=== PATIENT | female | born 1950 | race Caucasian/White ===

== ENCOUNTER 2021-12-05 11:17 | Emergency (ER) | payer MEDICARE ==
[2021-12-05] MEDS ORDERED: Alteplase PER PHARMACY Stroke 1 EACH MISC MISCELLANE PRN (11:22)
[2021-12-05] MEDS ORDERED: SODIUM CHLORIDE 0.9% 500 ML 500 ML IV STA (11:22)
[2021-12-05 11:24] VITALS: RESP 18
[2021-12-05] MEDS ORDERED: ALTEPLASE BOLUS FOR STROKE 5 MG in EMPTY SYRINGE 1 SYR IV STA (11:25)
[2021-12-05] MEDS ORDERED: ALTEPLASE IV STA (11:25)
[2021-12-05 11:27] LABS: Glucose,Whole Blood 285 mg/dL (70-110)
[2021-12-05] MEDS ORDERED: hydrALAZINE HCL 20 MG/ML 1 ML VIAL IVP STA (11:33)
--- NOTE | 2021-12-05 11:33 | ED ---
General Adult HPI - General Chief complaint: Neuro Symptoms/Deficit Stated complaint: neuro issue Time Seen by Provider: 12/05/21 11:19 Source: family, RN notes reviewed, old records reviewed Mode of arrival: ambulatory - History of Present Illness Initial comments: This is a 71-year-old female presents emergency Department with left-sided paralysis and facial droop for the last 30 minutes. states she was fine prior to this started suddenly the car. Patient has no movement of the arm or leg and she does have some drooping of the face on the left side. Patient den ies any areas of pain. According to the she has a hypertensive history and she has hydrocephalus and has a AUTO CLAIM REPRESENTATIVE shunt in place which was done this past April. states the patient did have a fall last evening but he does not know if she hit her head she did not mention that she had hit her head. - Related Data Allergies Allergy/AdvReac Type Severity Reaction Status Date / Time No Known Allergies Allergy Verified 12/05/21 11:40 Review of Systems ROS Statement: Those systems with pertinent positive or pertinent negative responses have been documented in the HPI. ROS Other: All systems not noted in ROS Statement are negative. General Exam - General Exam Comments Initial Comments: GENERAL: Patient is well-developed and well-nourished. Patient is nontoxic and well- hydrated and is in mild distress. ENT: Neck is soft and supple. No significant lymphadenopathy is noted. Oropharynx is clear. Moist mucous membranes. Neck has full range of motion without eliciting any pain. EYES: The sclera were anicteric and conjunctiva were pink and moist. Extraocular movements were intact and pupils were equal round and reactive to light. Eyelids were unremarkable. PULMONARY: Unlabored respirations. Good breath sounds bilaterally. No audible rales rhonchi or wheezing was noted. CARDIOVASCULAR: Patient is tachycardic at 150 beats a minute. ABDOMEN: Soft and nontender with normal bowel sounds. No palpable organomegaly was noted. There is no palpable pulsatile mass. SKIN: Skin is clear with no lesions or rashes and otherwise unremarkable. NEUROLOGIC: Patient is alert but difficult to assess orientation since she doesn't always answer all questions. Patient has facial droop on the left side that seems to be slight and intermittent at times. Patient has complete paralysis left arm and left leg. Patient has no sensation to the left arm or leg. Patient did not answer any questions about the images on the diagrams. Patient has an NIH of 19 MUSCULOSKELETAL: Normal extremities with adequate strength and full range of motion. LYMPHATICS: No significant lymphadenopathy is noted PSYCHIATRIC: Unable to assess at this time Course Vital Signs 12/05/21 12/05/21 12/05/21 11:21 11:22 11:45 Pulse Rate 144 H 144 H 142 H Respiratory 18 18 18 Rate Blood Pressure 172/113 153/110 144/90 O2 Sat by Pulse 96 96 95 Oximetry 12/05/21 12/05/21 12/05/21 12:00 12:30 13:00 Pulse Rate 142 H 144 H 147 H Respiratory 18 18 18 Rate Blood Pressure 132/90 127/89 138/81 O2 Sat by Pulse 89 L 88 L 90 L Oximetry Medical Decision Making - Medical Decision Making Patient had initial NIH 19 but got considerably better has an NIH currently of 6. Patient's blood pressure at last measurement was 159/113. I was awaiting to speak with one of the neuro interventional is because complicated nature of the case. The neurointerventionalist has responded. Patient's had a seizure shortly after she came back CAT scan she was given one of Ativan and I went back into reevaluate her after that and her neurologic deficit is completely resolved and she knew the date when where she was was able to answer all questions and move all extremities. CT and CTA showed no acute abnormality. Eventually the neurointerventionalist called back and agreed that the patient should not receive any alteplase since the patient's blood pressure was still elevated and the patient's symptoms were getting considerably better. Patient's EKG was done and it showed a atrial flutter at 140 bpm PA interval is 129 QRS is 86 QT interval 325 QTC is 410. At this point time patient was placed on Cardizem and started on heparin drip. Chest x-ray showed possible pulmonary edema or pneumonia. I started the patient on 2 g of Rocephin just to cover a possible pneumonia. I gave the patient 60 of Lasix and placed the patient on BiPAP I spoke with the ER doc down at [facility] and he accepted transfer of the patient. After this point time a family member came in and spoke with me and told me that they were concerned about a drinking history and maybe even drug abuse history. At this point time I did add a test for alcohol and drug use - Lab Data Result diagrams: 12/05/21 11:32 12/05/21 11:32 Lab Results 12/05/21 12/05/21 12/05/21 Range/Units 11:25 11:32 11:32 WBC 17.5 H (3.8-10.6) k/uL RBC 4.26 (3.80-5.40) m/uL Hgb 14.3 (11.4-16.0) gm/dL Hct 44.4 (34.0-46.0) % MCV 104.4 H (80.0-100.0) fL MCH 33.5 (25.0-35.0) pg MCHC 32.1 (31.0-37.0) g/dL RDW 13.4 (11.5-15.5) % Plt Count 550 H (150-450) k/uL MPV 7.8 Neutrophils % (Manual) 37 % Lymphocytes % (Manual) 58 % Monocytes % (Manual) 5 % Neutrophils # (Manual) 6.48 (1.3-7.7) k/uL Lymphocytes # (Manual) 10.15 H (1.0-4.8) k/uL Monocytes # (Manual) 0.88 (0-1.0) k/uL Nucleated RBCs 0 (0-0) /100 WBC Manual Slide Review Performed Hypochromasia Slight Macrocytosis Slight PT 11.2 (9.0-12.0) sec INR 1.0 (<1.2) APTT 22.2 (22.0-30.0) sec D-Dimer (<0.60) mg/L FEU Sodium (137-145) mmol/L Potassium (3.5-5.1) mmol/L Chloride (98-107) mmol/L Carbon Dioxide (22-30) mmol/L Anion Gap mmol/L BUN (7-17) mg/dL Creatinine (0.52-1.04) mg/dL Est GFR (CKD-EPI)AfAm (>60 ml/min/1.73 sqM) Est GFR (CKD-EPI)NonAf (>60 ml/min/1.73 sqM) Glucose (74-99) mg/dL POC Glucose (mg/dL) 285 H (70-110) mg/dL POC Glu Fax Machine Operator ID Allan, Franchesca Calcium (8.4-10.2) mg/dL Total Bilirubin (0.2-1.3) mg/dL AST (14-36) U/L ALT (4-34) U/L Alkaline Phosphatase (38-126) U/L Troponin I (0.000-0.034) ng/mL NT-Pro-B Natriuret Pep pg/mL Total Protein (6.3-8.2) g/dL Albumin (3.5-5.0) g/dL 12/05/21 12/05/21 12/05/21 Range/Units 11:32 11:32 11:32 WBC (3.8-10.6) k/uL RBC (3.80-5.40) m/uL Hgb (11.4-16.0) gm/dL Hct (34.0-46.0) % MCV (80.0-100.0) fL MCH (25.0-35.0) pg MCHC (31.0-37.0) g/dL RDW (11.5-15.5) % Plt Count (150-450) k/uL MPV Neutrophils % (Manual) % Lymphocytes % (Manual) % Monocytes % (Manual) % Neutrophils # (Manual) (1.3-7.7) k/uL Lymphocytes # (Manual) (1.0-4.8) k/uL Monocytes # (Manual) (0-1.0) k/uL Nucleated RBCs (0-0) /100 WBC Manual Slide Review Hypochromasia Macrocytosis PT (9.0-12.0) sec INR (<1.2) APTT (22.0-30.0) sec D-Dimer (<0.60) mg/L FEU Sodium 142 (137-145) mmol/L Potassium 3.9 (3.5-5.1) mmol/L Chloride 101 (98-107) mmol/L Carbon Dioxide 13 L (22-30) mmol/L Anion Gap 28 mmol/L BUN 7 (7-17) mg/dL Creatinine 0.80 (0.52-1.04) mg/dL Est GFR (CKD-EPI)AfAm 87 (>60 ml/min/1.73 sqM) Est GFR (CKD-EPI)NonAf 75 (>60 ml/min/1.73 sqM) Glucose 316 H (74-99) mg/dL POC Glucose (mg/dL) (70-110) mg/dL POC Glu Fax Machine Operator ID Calcium 9.7 (8.4-10.2) mg/dL Total Bilirubin 1.0 (0.2-1.3) mg/dL AST 101 H (14-36) U/L ALT 45 H (4-34) U/L Alkaline Phosphatase 91 (38-126) U/L Troponin I <0.012 (0.000-0.034) ng/mL NT-Pro-B Natriuret Pep 158 pg/mL Total Protein 8.8 H (6.3-8.2) g/dL Albumin 5.1 H (3.5-5.0) g/dL 12/05/21 Range/Units 11:32 WBC (3.8-10.6) k/uL RBC (3.80-5.40) m/uL Hgb (11.4-16.0) gm/dL Hct (34.0-46.0) % MCV (80.0-100.0) fL MCH (25.0-35.0) pg MCHC (31.0-37.0) g/dL RDW (11.5-15.5) % Plt Count (150-450) k/uL MPV Neutrophils % (Manual) % Lymphocytes % (Manual) % Monocytes % (Manual) % Neutrophils # (Manual) (1.3-7.7) k/uL Lymphocytes # (Manual) (1.0-4.8) k/uL Monocytes # (Manual) (0-1.0) k/uL Nucleated RBCs (0-0) /100 WBC Manual Slide Review Hypochromasia Macrocytosis PT (9.0-12.0) sec INR (<1.2) APTT (22.0-30.0) sec D-Dimer 1.53 H (<0.60) mg/L FEU Sodium (137-145) mmol/L Potassium (3.5-5.1) mmol/L Chloride (98-107) mmol/L Carbon Dioxide (22-30) mmol/L Anion Gap mmol/L BUN (7-17) mg/dL Creatinine (0.52-1.04) mg/dL Est GFR (CKD-EPI)AfAm (>60 ml/min/1.73 sqM) Est GFR (CKD-EPI)NonAf (>60 ml/min/1.73 sqM) Glucose (74-99) mg/dL POC Glucose (mg/dL) (70-110) mg/dL POC Glu Fax Machine Operator ID Calcium (8.4-10.2) mg/dL Total Bilirubin (0.2-1.3) mg/dL AST (14-36) U/L ALT (4-34) U/L Alkaline Phosphatase (38-126) U/L Troponin I (0.000-0.034) ng/mL NT-Pro-B Natriuret Pep pg/mL Total Protein (6.3-8.2) g/dL Albumin (3.5-5.0) g/dL Critical Care Time Critical Care Time: Yes Total Critical Care Time: 55 Disposition Clinical Impression: Seizure, Niko's paralysis, Atrial flutter with rapid ventricular response, Pulmonary edema Disposition: OTHER INSTITUTION NOT DEFINED Referrals: None,Stated [Primary Care Provider] - 1-2 days Time of Disposition: 14:32 - Out of Hospital Transfer - Req. Specs Out of Hospital Transfer - Requested Specifics: Other Emergency Center ([facility])
[2021-12-05] MEDS ORDERED: ONDANSETRON 4 MG/2 ML VIAL IVP STA (11:40)
[2021-12-05 11:44] LABS: HCT 44.4 % (34.0-46.0); HGB 14.3 gm/dL (11.4-16.0); Hypochromasia Slight; MCH 33.5 pg (25.0-35.0); MCHC 32.1 g/dL (31.0-37.0); MCV 104.4 fL (80.0-100.0); Macrocytosis Slight; Mean Platelet Volume 7.8; Platelet Count 550 k/uL (150-450); RBC 4.26 m/uL (3.80-5.40); RDW 13.4 % (11.5-15.5); WBC 17.5 k/uL (3.8-10.6)
[2021-12-05 11:56] LABS: Albumin 5.1 g/dL (3.5-5.0); Calcium 9.7 mg/dL (8.4-10.2); Potassium 3.9 mmol/L (3.5-5.1); Total Protein 8.8 g/dL (6.3-8.2)
--- NOTE | 2021-12-05 12:02 | CT ---
EXAMINATION TYPE: CT brain wo con for TPA CT DLP: mGycm, Automated exposure control for dose reduction was used. DATE OF EXAM: 12/05/2021 11:53 AM COMPARISON: None. CLINICAL INDICATION:Female, 71 years old with history of Neuro deficit, acute, stroke suspected, TECHNIQUE: Brain: Multiple axial CT images of the brain were obtained without IV contrast. Coronal sagittal refo rmats reviewed. FINDINGS: Brain: Extra-axial spaces: No abnormal extra-axial fluid collections. Ventricular system: Mildly dilated ventricular system. CHILD WELFARE SPECIALIST shunt catheter identified with posterior ri ght parietal approach with tip directed to the anterior horn of the left lateral ventricle. Visualize d catheter appears intact. Cerebral parenchyma: No acute intraparenchymal hemorrhage or mass effect. Regions of low-attenuation adjacent to the CHILD WELFARE SPECIALIST shunt tract in the parietal lobe related to prior injury/catheter placement. The cohen-white junction is well differentiated. Mild cerebral atrophy. Cerebellum: Unremarkable. Mass effect: No evidence of midline shift. Intracranial vasculature: unremarkable Soft tissues: Normal. Calvarium/osseous structures: No depressed skull fracture. Post surgical changes of the posterior rig ht parietal bone. Paranasal sinuses and mastoid air cells: Clear Visualized orbits: Bilateral aphakia IMPRESSION: 1. No acute evidence of intracranial hemorrhage or midline shift. 2. CHILD WELFARE SPECIALIST shunt catheter identified anterior horn of the left lateral ventricle. Visualized catheter elvis ears intact. Mild dilatation of the ventricular system which may related to cerebral atrophy and/or h ydrocephalus.
[2021-12-05] MEDS ORDERED: LORazepam 2 MG/ML INJ IV STA (12:05)
[2021-12-05] MEDS ORDERED: DILTIAZEM DRIP BOLUS FROM BAG 1 MG SOLN IV ONE (12:08)
[2021-12-05 12:11] LABS: Partial Thromboplastin Time 22.2 sec (22.0-30.0); Prothrombin Time 11.2 sec (9.0-12.0)
[2021-12-05 12:15] LABS: Lymphocytes # (M) 10.15 k/uL (1.0-4.8); Monocytes # (M) 0.88 k/uL (0-1.0); Neutrophils # (M) 6.48 k/uL (1.3-7.7); Neutrophils % (M) 37 %; Nucleated Red Blood Cells 0 /100 WBC (0-0); Total Cells Counted 100
[2021-12-05] MEDS ORDERED: DILTIAZEM 125 MG in SODIUM CHLORIDE 0.9% 100 ML IV SCH (12:15)
[2021-12-05] MEDS ORDERED: SODIUM CHLORIDE 0.9% 50 ML MINI-BAG IV ONE (12:26)
--- NOTE | 2021-12-05 12:29 | CT ---
EXAMINATION TYPE: CT angio head neck CT DLP: 410.7 mGycm, Automated exposure control for dose reduction was used. DATE OF EXAM: 12/05/2021 12:15 PM COMPARISON: CT head of the same date. CLINICAL INDICATION:Female, 71 years old with history of Neuro deficit, acute, stroke suspected; PHH, Neuro deficit, acute, stroke suspected. TECHNIQUE: Axially acquired helical CT angiogram of the head and neck was obtained with contrast util izing 65 cc of Isovue-370 administered intravenously. Axial images are supplemented with 3D reconstru ctions which were post-processed at an independent workstation. NASCET criteria used. FINDINGS: CTA HEAD: The visualized portions of the internal carotid arteries, middle cerebral arteries, anterior cerebral arteries, and posterior cerebral arteries are patent. The basilar and vertebral arteries are patent. CTA NECK: Right Carotid System: The common carotid artery and external carotid artery are patent. Medial deviation of the internal ca rotid artery. The carotid bifurcation demonstrates no evidence of hemodynamically significant stenosi s. The remaining portions of the internal carotid artery demonstrate normal size without significant narrowing. Left Carotid System: The common carotid artery and external carotid artery are patent. Medial deviation of the internal ca rotid artery. The carotid bifurcation demonstrates no evidence of hemodynamically significant stenosi s. The remaining portions of the internal carotid artery demonstrate normal size without significant narrowing. Vertebral arteries are patent without evidence hemodynamically significant stenosis. There is a three-vessel aortic arch. The origins of the great vessels are patent. No evidence of hemo dynamically significant stenosis. Biapical pleural-parenchymal scarring. Persistent visualization of DIALYSIS TECH shunt catheter along the right posterior neck extending into the anterior chest wall. Catheter appears intact. DIALYSIS TECH shunt catheter ter minates within the left anterior horn of the left lateral ventricle. IMPRESSION: 1. No evidence of dissection of the cervical internal carotid arteries or vertebral arteries or any e vidence of significant stenosis at the carotid bifurcations. 2. No evidence of high-grade stenosis or intracranial aneurysm.
[2021-12-05] MEDS ORDERED: FUROSEMIDE 10 MG/ML 10 ML VIAL IV STA (13:02)
--- NOTE | 2021-12-05 13:05 | XR ---
EXAMINATION TYPE: XR chest 1V portable DATE OF EXAM: 12/05/2021 12:51 PM COMPARISON: None TECHNIQUE: XR chest 1V portable Frontal view of the chest. CLINICAL INDICATION:Female, 71 years old with history of Short of breath; FINDINGS: Lungs/Pleura: No pleural effusion or pneumothorax. Bibasilar patchy airspace disease. Pulmonary vascularity: Unremarkable. Heart/mediastinum: Cardiomediastinal silhouette is unremarkable. Musculoskeletal: No acute osseous pathology. Other: PLAYERS ASSISTANT shunt catheter identified along the right chest wall. The distal aspect of the catheter is not well-visualized. IMPRESSION: Bibasilar patchy airspace disease concerning for pneumonia.
[2021-12-05] MEDS ORDERED: HEPARIN SODIUM 1,000 UN/ML (10ML VL) IV ONE (14:20)
[2021-12-05] MEDS ORDERED: HEPARIN SOD,PORK IN 0.45% NACL 25,000 UNIT in 0.45% NACL 1 250ML.BAG IV SCH (14:30)
[2021-12-05 14:55] LABS: Cocaine Screen,Urine Not Detected (NotDetected); Phencyclidine Screen,Urine Not Detected (NotDetected); Urn Cannabinoid Scrn Not Detected (NotDetected)
[2021-12-05 14:56] LABS: Amphetamine Screen,Urine Not Detected (NotDetected); Barbiturate Screen,Urine Not Detected (NotDetected); Benzodiazepines Screen,Urine Not Detected (NotDetected); Methadone Screen, Urine Not Detected (NotDetected); Opiate Screen,Urine Not Detected (NotDetected); Oxycodone Screen, Urine Not Detected (NotDetected); Tricyclic Antidepressant,Urine Not Detected (NotDetected)
[2021-12-05 16:49] VITALS: BP 122/87; PULSE 138
== END 2021-12-05 15:35 | disposition other institution (70) ==
LOC: EC 11:17
DX: G83.84 Todd's paralysis (postepileptic) (principal); R56.9 Unspecified convulsions; I48.92 Unspecified atrial flutter; J81.1 Chronic pulmonary edema; I10 Essential (primary) hypertension; Z20.822 Contact with and (suspected) exposure to COVID-19
CPT/HCPCS: 99291 ×2; 96365 ×2; 96366 ×2; 96367 ×2; 96368 ×2; 96375 ×2; 96361 ×2; 36415; 94660; 93005; 85379; 83880; 80053; 83735; 84484; 85025; 85610; 85730; 80306; 87635; 71045; 70496; 70450; 70498; J2060; J1940; J2405; J0696; J1644 ×2; Q9967